=== PATIENT | female | born 1945 ===

== ENCOUNTER 2018-08-01 09:49 | Emergency (ER) | payer OTHER ==
[~2018-08-01] VITALS: Ht 157.5 cm; Wt 73.9 kg
[~2018-08-01 09:49] MED LIST: NABUMETONE500 MG PO; PERCOCET 5/3251 TAB PO
== END 2018-08-01 13:15 | disposition home or self-care (01) ==
LOC: ER 09:49
DX: B33.8 Other specified viral diseases (principal); J11.1 Influenza due to unidentified influenza virus with other respiratory manifestations

== ENCOUNTER 2019-07-09 11:39 | Emergency (ER) | payer OTHER ==
[~2019-07-09] VITALS: Ht 157.5 cm; Wt 73.0 kg
[2019-07-09] MEDS ORDERED: LEVOTHYROXINE25 MCG (11:51)
[2019-07-09] MEDS ORDERED: MICARDIS HCT 81 EACH (11:52)
== END 2019-07-09 15:17 | disposition home or self-care (01) ==
LOC: ER 11:39
DX: R42 Dizziness and giddiness (principal); R11.10 Vomiting, unspecified